=== PATIENT | female | born 1995 ===

== ENCOUNTER 2017-11-07 21:28 | Emergency (ER) | payer SELFPAY ==
[2017-11-07 22:06] VITALS: RESP 18; TEMP 98.1; O2SAT 100; BMI 34.7
--- NOTE | 2017-11-07 22:14 | ED PDOC ---
Arrival/HPI - General Chief Complaint: GI Problem Time Seen by Provider: 11/07/17 22:11 Historian: Patient - History of Present Illness Narrative History of Present Illness (Text): 11/07/17 22:11 This 22 yo female who denies pmh, presents to this Emergency department complaining of nausea, and she has missed her period for over 2 months. Patient has been nauseous for a couple of days. Patient denies pelvic pain, abdominal pain, vaginal bleeding, vaginal discharge, or fever. Patient denies other complains. Time/Duration: Other (see hpi) Context: Home Past Medical History - Provider Review Nursing Documentation Reviewed: Yes - Pulmonary Hx Respiratory Disorders: Yes Hx Asthma: Yes - Psychiatric Hx Substance Use: No Family/Social History - Physician Review Nursing Documentation Reviewed: Yes Family/Social History: Other (noncontributory) Smoking Status: Never Smoked Hx Alcohol Use: No Hx Substance Use: No Allergies/Home Meds Allergies/Adverse Reactions: Allergies ibuprofen [From Motrin] Allergy (Verified 11/07/17 22:04) SWELLING Review of Systems - Review of Systems Constitutional: Normal. absent: Fatigue, Weight Change, Fevers Eyes: Normal ENT: Normal Respiratory: Normal Cardiovascular: Normal Gastrointestinal: Constipation (chronic), Nausea. absent: Abdominal Pain, Diarrhea, Vomiting Genitourinary Female: Other (see hpi) Musculoskeletal: Normal Skin: Normal Neurological: Normal Endocrine: Normal Hemo/Lymphatic: Normal Psychiatric: Normal Physical Exam Vital Signs Temp Pulse Resp BP Pulse Ox 11/07/17 22:05 98.1 F 86 18 98/70 L 100 Temperature: Afebrile Blood Pressure: Normal Pulse: Regular Respiratory Rate: Normal Appearance: Positive for: Well-Appearing, Non-Toxic, Comfortable Pain Distress: None Mental Status: Positive for: Alert and Oriented X 3 - Systems Exam Head: Present: Atraumatic, Normocephalic Pupils: Present: PERRL Extroacular Muscles: Present: EOMI Conjunctiva: Present: Normal Mouth: Present: Moist Mucous Membranes Neck: Present: Normal Range of Motion. No: Meningeal Signs Respiratory/Chest: Present: Clear to Auscultation, Good Air Exchange. No: Respiratory Distress, Accessory Muscle Use, Wheezes, Decreased Breath Sounds, Rales, Retracting, Rhonchi Cardiovascular: Present: Regular Rate and Rhythm, Normal S1, S2. No: Murmurs Abdomen: Present: Normal Bowel Sounds. No: Tenderness, Distention, Peritoneal Signs, Rebound, Guarding, [place]Bur[place]'s Point Tender, Mass/Organomegaly Back: Present: Normal Inspection. No: CVA Tenderness, Midline Tenderness, Paraspinal Tenderness Upper Extremity: Present: Normal Inspection, Normal ROM, NORMAL PULSES, Neurovascularly Intact, Capillary Refill < 2s. No: Cyanosis, Edema Lower Extremity: Present: Normal Inspection, NORMAL PULSES, Normal ROM. No: Edema, CALF TENDERNESS Neurological: Present: GCS=15, CN II-XII Intact, Speech Normal, Motor Func Grossly Intact, Normal Cerebellar Funct, Gait Normal Skin: Present: Warm, Dry, Normal Color. No: Rashes Psychiatric: Present: Alert, Oriented x 3, Normal Insight, Normal Concentration Medical Decision Making ED Course and Treatment: 11/08/17 01:24 Re-evaluation. Patient feels better. Discussed results and plan with patient who expresses understanding. All questions answered and there is agreement with the plan to discharge home with instructions. Patient stable for discharge. Return if symptoms persist or worsen. Re-evaluation Time: 01:24 Reassessment Condition: Re-examined, Improved - Lab Interpretations Lab Results: 11/07/17 22:30 11/07/17 22:30 Lab Results 11/07/17 22:30: Beta HCG, Quant 01725.00 H 11/07/17 22:30: Sodium 139, Potassium 3.9, Chloride 102, Carbon Dioxide 25, Anion Gap 15, BUN 14, Creatinine 0.6 L, Est GFR ( Amer) > 60, Est GFR ( Non-Af Amer) > 60, Random Glucose 110, Calcium 9.3, Total Bilirubin 0.2, AST 24 , ALT 26, Alkaline Phosphatase 55, Total Protein 7.6, Albumin 4.0, Globulin 3.5 , Albumin/Globulin Ratio 1.1 11/07/17 22:30: WBC 11.6 H, RBC 4.06, Hgb 11.9 L, Hct 35.4 L, MCV 87.2, MCH 29.3 , MCHC 33.6, RDW 12.7, Plt Count 260, MPV 9.3, Gran % 63.9, Lymph % (Auto) 28.3 , [place] % (Auto) 6.6 H, Eos % (Auto) 1.0 L, Baso % (Auto) 0.2, Gran # 7.43 H, Lymph # (Auto) 3.3, [place] # (Auto) 0.8 H, Eos # (Auto) 0.1, Baso # (Auto) 0.02 11/07/17 22:19: Urine Color Light yellow, Urine Appearance Clear, Urine pH 6.0, Ur Specific [place] >= 1.030, Urine Protein Trace H, Urine Glucose (UA) Negative , Urine Ketones Trace H, Urine Blood Negative, Urine Nitrate Negative, Urine Bilirubin Negative, Urine Urobilinogen 0.2, Ur Leukocyte Esterase Negative, Urine RBC Negative, Urine WBC Negative, Ur Epithelial Cells None, Urine HCG, Qual Positive I have reviewed the lab results: Yes Interpretation: No clinic. lab abnormalty - RAD Interpretation Narrative RAD Interpretations (Text): 11/08/17 01:24 [facility] Division of Radiology [address] [place] [address] Tel. no. Patient Name: ERUM HANEY Pt. Address: [address] [place] [address] Rec #: [id number] [place] [address]: Norman Prado PA-C Pt Order Location: ED : 1995 Female Age: 22 Order #: [id number] Reason for exam: nausea Ultrasound OB TRANSVAGINAL Exam Date: 11/07/17 This imaging exam was performed at [facility] EXAM: US First Trimester, Transabdominal US , Transvaginal CLINICAL HISTORY: 22 years old, female; Signs and symptoms; Lmp or gestational age (in weeks): 09/06/17; Other: Nausea; TECHNIQUE: Real-time transabdominal and transvaginal obstetrical ultrasound of the maternal pelvis and a first trimester with image documentation. Transvaginal imaging was used for better evaluation of the fetus and adnexa. COMPARISON: No relevant prior studies available. FINDINGS: Gestation: Single live intrauterine gestation. heart rate of 124 beats per minute. [place]-rump length of 0.8 cm, correlating with gestational age of 6 weeks 5 days. Uterus/cervix: No subchorionic hemorrhage. Closed cervix. Ovaries: Normal ovaries. No adnexal masses. Free fluid: No significant free fluid. IMPRESSION: 1. Single live intrauterine gestation. Radiology Orders: 11/07/17 22:19 OB TRANSVAGINAL [US] Stat Disposition/Present on Arrival - Present on Arrival Any Indicators Present on Arrival: No History of DVT/PE: No History of Uncontrolled Diabetes: No Urinary Catheter: No History of Decub. Ulcer: No History Surgical Site Infection Following: None - Disposition Have Diagnosis and Disposition been Completed?: Yes Diagnosis: 6 weeks gestation of Disposition: HOME/ ROUTINE Disposition Time: Patient Plan: Discharge Patient Problems: Current Active Problems Problem Status Onset 6 weeks gestation of Acute Condition: IMPROVED Additional Instructions: Patient Name: ERUM HANEY Pt. Address: [address] [place] [address] Rec #: [id number] [place] [address]: Norman Prado PA-C Pt Order Location: ED : 1995 Female Age: 22 Order #: [id number] Reason for exam: nausea Ultrasound OB TRANSVAGINAL Exam Date: 11/07/17 This imaging exam was performed at [facility] EXAM: US First Trimester, Transabdominal US , Transvaginal CLINICAL HISTORY: 22 years old, female; Signs and symptoms; Lmp or gestational age (in weeks): 09/06/17; Other: Nausea; TECHNIQUE: Real-time transabdominal and transvaginal obstetrical ultrasound of the maternal pelvis and a first trimester with image documentation. Transvaginal imaging was used for better evaluation of the fetus and adnexa. COMPARISON: No relevant prior studies available. FINDINGS: Gestation: Single live intrauterine gestation. heart rate of 124 beats per minute. [place]-rump length of 0.8 cm, correlating with gestational age of 6 weeks 5 days. Uterus/cervix: No subchorionic hemorrhage. Closed cervix. Ovaries: Normal ovaries. No adnexal masses. Free fluid: No significant free fluid. IMPRESSION: 1. Single live intrauterine gestation. Call women clinic for follow up visit. Take as instructed. Return to emergency if symptoms worsen Prescriptions: Doxylamine Succinate [Nighttime Sleep-Aid] 25 mg PO DAILY PRN #20 tablet PRN Reason: Nausea/Vomiting Multivit/Folic Acid/I [ Plus] 1 tab PO DAILY #30 tab Pyridoxine HCl (Vitamin B6) [Vitamin B-6] 25 mg PO DAILY PRN #20 tablet PRN Reason: Nausea/Vomiting Referrals: [facility] [Outside] - [facility] with [facility] [Outside] - Follow up with primary Forms: [employer] (Togolese), WORK NOTE
[2017-11-07 22:23] LABS: URINE BILIRUBIN NEGATIVE (NEGATIVE); URINE BLOOD NEGATIVE (NEGATIVE); URINE GLUCOSE (UA) NEGATIVE (NEGATIVE); URINE LEUKOCYTE ESTERASE NEGATIVE Leu/uL (NEGATIVE); URINE PROTEIN TRACE mg/dL (<30 mg/dL); URINE UROBILINOGEN 0.2 E.U./dL (<1 E.U./dL)
[2017-11-07 22:24] LABS: URINE APPEARANCE CLEAR (CLEAR); URINE COLOR LIGHT YELLOW (YELLOW)
[2017-11-07 22:25] LABS: HCG,QUALITATIVE URINE POSITIVE (NEGATIVE)
[2017-11-07 22:30] LABS: URINE RBC NEGATIVE /hpf (0-2); URINE WBC NEGATIVE /hpf (0-6)
[2017-11-07 22:43] LABS: BASO # 0.02 K/mm3 (0.0-2.0); BASO % 0.2 % (0.0-3.0); EOS # 0.1 (0.0-0.7); GRAN # 7.43 (1.4-6.5); GRAN % 63.9 % (50.0-68.0); HEMOGLOBIN 11.9 g/dL (12.0-16.0); LYMPH # 3.3 (1.2-3.4); LYMPH % 28.3 % (22.0-35.0); MEAN CELL VOLUME 87.2 fl (80.0-105.0); MEAN CORPUSCULAR HEMOGLOBIN 29.3 pg (25.0-35.0); MEAN CORPUSCULAR HGB CONC 33.6 g/dl (31.0-37.0); MEAN PLATELET VOLUME 9.3 fl (7.0-11.0); MONO # 0.8 (0.1-0.6); MONO % 6.6 % (1.0-6.0); RBC 4.06 10^6/uL (3.5-6.1); RED CELL DISTRIBUTION WIDTH 12.7 % (11.5-14.5); WHITE BLOOD COUNT 11.6 10^3/ul (4.5-11.0)
[2017-11-07 22:55] LABS: ALB/GLOB RATIO 1.1 (1.1-1.8)
[2017-11-07 22:56] LABS: ALT/SGPT 26 U/L (7-56); AST/SGOT 24 U/L (14-36); BLOOD UREA NITROGEN 14 mg/dL (7-21); CALCIUM 9.3 mg/dL (8.4-10.5); GFR AFRICAN-AMERICAN > 60; GFR NON-AFRICAN AMERICAN > 60
--- NOTE | 2017-11-08 00:53 | US ---
EXAM: US First Trimester, Transabdominal US , Transvaginal CLINICAL HISTORY: 22 years old, female; Signs and symptoms; Lmp or gestational age (in weeks): 09/06/17; Other: Nausea; TECHNIQUE: Real-time transabdominal and transvaginal obstetrical ultrasound of the maternal pelvis and a first trimester with image documentation. Transvaginal imaging was used for better evaluation of the fetus and adnexa. COMPARISON: No relevant prior studies available. FINDINGS: Gestation: Single live intrauterine gestation. heart rate of 124 beats per minute. [place]-rump length of 0.8 cm, correlating with gestational age of 6 weeks 5 days. Uterus/cervix: No subchorionic hemorrhage. Closed cervix. Ovaries: Normal ovaries. No adnexal masses. Free fluid: No significant free fluid. IMPRESSION: 1. Single live intrauterine gestation.
[2017-11-08 01:40] VITALS: BP 107/82; PULSE 82
== END 2017-11-08 01:40 | disposition home or self-care (01) ==
LOC: ED 21:28 → MERGE 21:28 → ED 11-08 01:40
DX: O26.91 Pregnancy related conditions, unspecified, first trimester (principal); Z3A.01 Less than 8 weeks gestation of pregnancy